=== PATIENT | female | born 1985 | race Caucasian/White ===

== ENCOUNTER 2017-01-04 18:14 | Emergency (ER) | payer OTHER ==
[2017-01-04 20:43] LABS: BASO # 0.1 10_X3_uL (0.0-0.1); BASO % 0.6 % (0.1-1.2); EOS # 0.2 10_X3_uL (0.0-0.4); EOS % 1.8 % (0.7-5.8); GRAN # 6.1 10_X3_uL (1.6-6.1); GRAN % 59.6 % (34.0-71.1); HEMATOCRIT 42.1 % (34-45); HEMOGLOBIN 13.5 g/dL (11.2-15.7); LYMPH % 28.7 % (19.3-51.7); MEAN CORPUSCULAR HEMOGLOBIN 29.9 pg (27.0-33.0); MEAN CORPUSCULAR HGB CONC 32.1 g/dL (32.0-36.0); MEAN CORPUSCULAR VOLUME 93.1 fL (79-95); MONO % 9.3 % (4.7-12.5); PLATELET COUNT 283 x10_3/uL (182-369); RED BLOOD COUNT 4.52 x10_6/uL (3.9-5.2); RED CELL DISTRIBUTION WIDTH 12.8 % (11.7-14.4); WHITE BLOOD COUNT 10.3 x10_3/uL (4.0-10.0)
[2017-01-04 20:49] LABS: URINE BILIRUBIN NEGATIVE (NEGATIVE); URINE BLOOD NEGATIVE (NEGATIVE); URINE GLUCOSE (UA) NORMAL (NORMAL); URINE KETONE NEGATIVE (NEGATIVE); URINE LEUKOCYTE ESTERASE TRACE (NEGATIVE); URINE NITRATE NEGATIVE (NEGATIVE); URINE PROTEIN NEGATIVE (NEGATIVE)
[2017-01-04 20:55] LABS: ALBUMIN 4.4 gm/dL (3.4-5.0); ALKALINE PHOSPHATASE 76 U/L (50-136); ALT/SGPT 13 U/L (3.5-33.9); AMYLASE 42 U/L (15.62-74.58); AST/SGOT 15 U/L (7.04-26.96); BILIRUBIN,TOTAL 0.24 mg/dL (0.0-1.0); BLOOD UREA NITROGEN 10 mg/dL (7-18); CALCIUM 8.9 mg/dL (8.7-10.7); CARBON DIOXIDE 27 mmol/L (21-32); CREATININE 0.5 mg/dL (0.6-1.3); GLUCOSE,RANDOM 85 mg/dL (70-99); LIPASE 30 U/L (6.75-60.75); POTASSIUM 3.3 mmol/L (3.5-5.1); SODIUM 138 mmol/L (136-145); TOTAL PROTEIN 7.4 gm/dL (6.4-8.2)
[2017-01-04 21:01] LABS: URINE AMORPHOUS SEDIMENT 2+; URINE BACTERIA TRACE (NONE SEEN); URINE RBC 0-5 /[HPF] (0-2); URINE WBC 0-5 /[HPF] (0-5)
== END 2017-01-04 21:45 | disposition home or self-care (01) ==
LOC: ER 18:14
PROVIDERS: General Practice
DX: R11.10 Vomiting, unspecified (principal); K59.00 Constipation, unspecified
CPT/HCPCS: 36415; 74000; 80053; 81001; 82150; 83690; 85025; 96361; 96374; 99070; 99284-25